=== PATIENT | female | born 2000 | race African-American/Black ===

== ENCOUNTER 2021-12-16 08:00 | Outpatient (CLI) | payer OTHER ==
[2021-12-16 17:54] LABS: INFECTIOUS MONONUCLEOSIS NEGATIVE (Negative)
[2021-12-16 18:20] LABS: RAPID STREP SCREEN Negative (Negative)
== END 2021-12-16 23:59 | disposition home or self-care (01) ==
LOC: LAB.N 08:00
PROVIDERS: ATTEND Family Medicine
DX: J03.90 Acute tonsillitis, unspecified (principal)
CPT/HCPCS: 86308; 87070; 87430

== ENCOUNTER 2022-04-20 08:40 | Outpatient (CLI) | payer OTHER | END 2022-04-20 23:59 | disposition home or self-care (01) | LOC: LAB.N 08:40 | PROVIDERS: ATTEND Family Medicine | DX: J03.90 Acute tonsillitis, unspecified (principal) | CPT/HCPCS: 87070 ==